=== PATIENT | female | born 1960 | race African-American/Black ===

== ENCOUNTER 2021-10-22 09:46 | Outpatient (CLI) | payer OTHER ==
[2021-10-23 00:47] LABS: SARS-CoV-2 PCR by NAA Not Detected (NotDetected)
== END 2021-10-22 09:47 | disposition home or self-care (01) ==
LOC: CSHLAB 09:46
PROVIDERS: ATTEND Internal Medicine Gastroenterology
DX: Z20.822 Contact with and (suspected) exposure to COVID-19 (principal); Z12.11 Encounter for screening for malignant neoplasm of colon
CPT/HCPCS: U0003; U0005

== ENCOUNTER 2021-10-25 06:34 | Day surgery (SDC) | payer OTHER ==
[2021-10-23 11:23] VITALS: BMI 51.3
[2021-10-25] MEDS ORDERED: Lidocaine 1% MPF 2 ML VIAL ONE (07:42)
[2021-10-25] MEDS ORDERED: PROPOFOL 40 ML ONE (08:29)
[2021-10-25] MEDS ORDERED: Propofol 1,000 MG/100 ML VIAL IV ONE (08:47)
== END 2021-10-25 09:30 | disposition home or self-care (01) ==
LOC: CSHSDC 06:34
PROVIDERS: ATTEND Internal Medicine Gastroenterology
PROC: 0DBP8ZZ Excision of Rectum, Via Natural or Artificial Opening Endoscopic (ICD-10-PCS; principal; 2021-10-25)
DX: Z12.11 Encounter for screening for malignant neoplasm of colon (principal); K62.1 Rectal polyp; K57.30 Diverticulosis of large intestine without perforation or abscess without bleeding; K64.9 Unspecified hemorrhoids; K63.89 Other specified diseases of intestine; I10 Essential (primary) hypertension; E66.9 Obesity, unspecified; K21.9 Gastro-esophageal reflux disease without esophagitis; M81.0 Age-related osteoporosis without current pathological fracture
CPT/HCPCS: 88305; J2704

== ENCOUNTER 2024-04-12 11:43 | Outpatient (CLI) | payer OTHER | END 2024-04-12 11:44 | disposition home or self-care (01) | LOC: CSHRAD 11:43 | PROVIDERS: ATTEND Family Medicine | DX: Z01.818 Encounter for other preprocedural examination (principal) | CPT/HCPCS: 71046 ==